=== PATIENT | female | born 1950 | race Hispanic/Latino ===

== ENCOUNTER 2019-05-31 13:45 | Inpatient (IN) | payer OTHER ==
[2019-05-31 15:02] LABS: Urine Bacteria >50 /HPF (<20); Urine RBC <5 /HPF (NONE SEEN)
[2019-05-31 15:03] LABS: Urine Culture Reflex Order REFLEXED
[2019-05-31] MEDS ORDERED: MORPHINE 2 MG/ML SYR ONE (15:22)
[2019-05-31] MEDS ORDERED: ONDANSETRON 4 MG/2 ML VIAL ONE (15:22)
[2019-05-31 15:37] LABS: Absolute Lymphocytes (CBC) 0.5 K/uL (0.7-4.9); Basophils % 0.5 % (0-1.3); Lymphocytes % 1.8 % (15.3-44.8); MPV 10.1 fL (7.6-11.3); RBC Red Blood Cell Count 3.35 M/uL (3.86-4.86)
[2019-05-31 15:40] LABS: Urine Blood 1+ (NEG); Urine Glucose NEGATIVE (NEG); Urine Protein 2+ (NEG); Urine Specific Gravity <1.005 (1.005-1.030)
[2019-05-31 15:55] LABS: Albumin 2.7 g/dL (3.4-5.0); Bilirubin Direct 0.2 mg/dL (0-0.2); Bilirubin Total 0.4 mg/dL (0.2-1.0); Potassium 4.2 mmol/L (3.5-5.1); Protein, Total 7.2 g/dL (6.4-8.2)
[2019-05-31 16:07] LABS: Blood Morphology Comment NOT SEEN (NOT SEEN); Platelet Estimate ADEQ
[2019-05-31] MEDS ORDERED: NA CHLORIDE 0.9% 1,000 ML ONE (16:33)
--- NOTE | 2019-05-31 17:21 | RAD REPORT ---
EXAM DESCRIPTION: - CT-ABD PELVIS W/O CONTRAST - 05/31/2019 4:54 pm CLINICAL HISTORY: Abdominal pain COMPARISON: None TECHNIQUE: Computed axial tomography of the abdomen and pelvis was obtained. IV was not requested. O ral contrast was given. Coronal reconstructions performed. All CT scans are performed using dose optimization technique as appropriate and may include automated exposure control or mA/KV adjustment according to patient size. FINDINGS: The evaluation of solid organs and vessels is limited secondary to the lack of contrast a dministration. Moderate bilateral hydronephrosis. The ureters are dilated bilaterally. A cystocele is present. A gen itourinary calculus is not seen The liver, spleen, pancreas, and right adrenal appear grossly normal. 24 millimeter fatty left adrenal mass may represent a myelolipoma The appendix is normal. Diverticula stem from the colon. Minimal stranding adjacent to the sigmoid. Mild anterior subluxation L4 on L5 A small hiatal hernia. Contrast in the esophagus may indicate GE reflux IMPRESSION: Minimal sigmoid diverticulitis Moderate bilateral hydronephrosis and bilateral hydroureter perhaps related to this could ureteral r eflux. Followup is rec
--- NOTE | 2019-05-31 18:14 | EDPHYS ---
Physician Documentation [facility] Name: Rosanna Persaud Age: 68 yrs Sex: Female : 1950 Arrival Date: 05/31/2019 Time: 13:47 Bed 28 Private MD: Colton Perez ED Physician Rodolfo Viveros HPI: 05/31 14:40 This 68 yrs old Female presents to ER via Ambulatory with complaints of Fever, cp Pelvic Pain. 14:40 The patient presents with abdominal pain in the lower abdomen. Onset: The cp symptoms/episode began/occurred 2-3 days. The symptoms do not radiate. Associated signs and symptoms: Pertinent positives: fever, Pertinent negatives: blood in stools, chest pain, constipation, diarrhea. The symptoms are described as crampy. Historical: - Allergies: 14:02 No Known Allergies; hb - Immunization history:: Adult Immunizations up to date. - Social history:: Smoking status: unknown. - Ebola Screening: : No symptoms or risks identified at this time. ROS: 14:45 Constitutional: Negative for body aches, chills, fever, poor PO intake. cp 14:45 Eyes: Negative for injury, pain, redness, and discharge. cp 14:45 ENT: Negative for drainage from ear(s), ear pain, sore throat, difficulty swallowing, difficulty handling secretions. 14:45 Cardiovascular: Negative for chest pain, palpitations. 14:45 Respiratory: Negative for cough, shortness of breath, wheezing. 14:45 Abdomen/GI: Positive for abdominal pain, Negative for vomiting, diarrhea, constipation, black/tarry stool, rectal bleeding. 14:45 Back: Negative for radiated pain. 14:45 : Negative for urinary symptoms, vaginal bleeding, vaginal discharge. 14:45 Skin: Negative for rash. 14:45 Neuro: Negative for altered mental status, headache, weakness. 14:45 All other systems are negative. Exam: 14:50 Constitutional: The patient appears in no acute distress, alert, awake, cp non-diaphoretic, non-toxic, well developed, well nourished. 14:50 Head/Face: Normocephalic, atraumatic. cp 14:50 Eyes: Periorbital structures: appear normal, Conjunctiva: normal, no exudate, no injection, Sclera: no appreciated abnormality, Lids and lashes: appear normal, bilaterally. 14:50 ENT: External ear(s): are unremarkable, Nose: is normal, Mouth: Lips: moist, Oral mucosa: pink and intact, moist, Posterior pharynx: is normal, airway is patent, no erythema, no exudate. 14:50 Neck: ROM/movement: is normal, is supple, without pain, no range of motions limitations, no nuchal rigidity. 14:50 Chest/axilla: Inspection: normal, Palpation: is normal, no crepitus, no tenderness. 14:50 Cardiovascular: Rate: tachycardic, Rhythm: regular, Edema: is not appreciated, JVD: is not appreciated. 14:50 Respiratory: the patient does not display signs of respiratory distress, Respirations: normal, no use of accessory muscles, no retractions, no splinting, no tachypnea, labored breathing, is not present, Breath sounds: are clear throughout, no decreased breath sounds, no stridor, no wheezing. 14:50 Abdomen/GI: Inspection: abdomen appears normal, Bowel sounds: active, all quadrants, Palpation: soft, in all quadrants, moderate abdominal tenderness, in the suprapubic area and right lower quadrant, rebound tenderness, is not appreciated, voluntary guarding, is not appreciated, involuntary guarding, is not appreciated. 14:50 Back: pain, is absent, ROM is normal. 14:50 : Bladder: prolapsed, observed extending through vagina. 14:50 Skin: no rash present. 14:50 Neuro: Orientation: to person, place \\T\\ time. Mentation: is normal, Motor: moves all fours, strength is normal. Vital Signs: 14:02 BP 157 / 79; Pulse 113; Resp 16; Temp 99.9(TE); Pulse Ox 99% on R/A; Weight 73.03 kg; hb Height 5 ft. 3 in. (160.02 cm); Pain 10/10; 18:00 BP 133 / 69; Pulse 103; Resp 20; Temp 101.1(O); Pulse Ox 100% ; tr5 19:48 BP 131 / 54; Pulse 89; Resp 16; Temp 100.3(O); Pulse Ox 100% on R/A; tr5 14:02 Body Mass Index 28.52 (73.03 kg, 160.02 cm) hb MDM: 14:13 Patient medically screened. cp 15:00 Differential diagnosis: appendicitis, bowel obstruction, cholecystitis, Cholelithiasis, cp diverticulitis, Pyelonephritis, Ureterolithiasis, urinary tract infection. 17:45 Data reviewed: vital signs, nurses notes, lab test result(s), radiologic studies, CT cp scan, I have discussed the patient's presentation/case with the attending Emergency Department Physician; and as a result, I will admit patient, administer antibiotics Flagyl, Rocephin. 17:58 Physician consultation: Luis Daniel Garcia MD was called at 17:50, was contacted at 17:50, regarding consult, patient's condition, and will see patient in inpatient room, tomorrow, would like admission per Dr. Beatrice Chau MD. 05/31 14:34 Order name: Urine Microscopic Only; Complete Time: 15:04 cp 05/31 15:05 Order name: Urine Culture EDMS 05/31 15:10 Order name: Basic Metabolic Panel; Complete Time: 15:59 cp 05/31 15:59 Interpretation: Normal except: NA 133; CO2 20; GLUC 257; BUN 35; CRE 1.82; GFR 28. cp 05/31 15:10 Order name: CBC with Diff; Complete Time: 17:24 cp 05/31 15:59 Interpretation: Normal except: WBC 28.8; RBC 3.35; HGB 10.2; HCT 30.0; YESENIA% 95.1; LYM% cp 1.8; MN% 2.6; NEUT A 27.4. 05/31 15:10 Order name: Creatinine for Radiology; Complete Time: 15:59 cp 05/31 15:10 Order name: Hepatic Function; Complete Time: 15:59 cp 05/31 15:10 Order name: Lipase; Complete Time: 15:59 cp 05/31 15:23 Order name: Urine Dipstick--Ancillary (enter results); Complete Time: 15:46 bd 05/31 16:07 Order name: Manual Differential; Complete Time: 17:24 EDMS 05/31 17:47 Order name: Lactate cp 05/31 17:47 Order name: Procalcitonin cp 05/31 17:50 Order name: Lactate; Complete Time: 23:02 EDMS 05/31 17:50 Order name: Procalcitonin; Complete Time: 23:02 EDMS 05/31 23:02 Interpretation: Abnormal: Procalcitonin 1.80. cp 05/31 14:34 Order name: Urine Dipstick-Ancillary (obtain specimen); Complete Time: 14:44 cp 05/31 15:10 Order name: IV Saline Lock; Complete Time: 15:30 cp 05/31 15:10 Order name: Labs collected and sent; Complete Time: 15:30 cp 05/31 16:44 Order name: CT-ABD ; Complete Time: 17:24 EDMS 05/31 17:35 Order name: Randle; Complete Time: 18:41 cp 05/31 17:36 Order name: Bladder Scanner: pre and post randle placement; Complete Time: 18:57 cp Administered Medications: 15:26 Drug: Zofran 4 mg Route: IVP; Site: left antecubital; tr5 17:37 Follow up: Response: Marked relief of symptoms tr5 15:27 Drug: morphine 2 mg {Note: RASS"0.} Route: IVP; Site: left antecubital; tr5 17:38 Follow up: Response: Pain is decreased tr5 16:38 Drug: NS 0.9% 1000 ml Route: IV; Rate: 1000 ml/hr; Site: left antecubital; tr5 18:13 CANCELLED (Physician Discretion): NS 0.9% 1000 ml IV at 1000 ml/hr Per protocol; 1000 cp mL bolus 18:13 CANCELLED (Physician Discretion): NS 0.9% 1000 ml IV at 100 ml/hr continuous cp 18:55 Drug: NS 0.9% (30 ml/kg) 30 ml/kg Route: IV; Rate: bolus; Site: left antecubital; tr5 18:55 Drug: Tylenol 1000 mg Route: PO; tr5 18:55 Drug: Ibuprofen 800 mg Route: PO; tr5 18:56 Drug: Rocephin 1 grams Route: IV; Rate: calculated rate; Site: left antecubital; tr5 18:58 Drug: metroNIDAZOLE 500 mg Volume: 100 ml; Route: IVPB; Infused Over: 30 mins; Site: tr5 left antecubital; Disposition: 05/31/19 18:13 Hospitalization ordered by Beatrice Chau for Inpatient Admission. Preliminary diagnosis are Hydroureter - bilateral, Other and unspecified hydronephrosis - bilateral, Diverticulitis of intestine, part unspecified, without perforation or abscess without bleeding - sigmoid, Urinary tract infection, site not specified. - Bed requested for Telemetry/MedSurg (Inpatient). - Status is Inpatient Admission. tr5 - Condition is Stable. - Problem is new. - Symptoms have improved. UTI on Admission? Yes Addendum: 06/04/2019 06:08 Co-signature as Attending Physician, Rodolfo Viveros MD. g s Signatures: Dispatcher [employer] EDMA Wendie pendleton bd Souleymane Mayorga PA PA cp Marguerite Lentz, GILDA RN Rodolfo Viveros MD MD Gabe Chen RN RN tr5 Corrections: (The following items were deleted from the chart) 05/31 16:44 15:12 Abdomen Pelvis W Con+CT.RAD.BRZ ordered. EDMA EDMA 16:56 14:30 This 68 yrs old Female presents to ER via Ambulatory with complaints of cp Fever, Pelvic Pain. cp 18:13 17:56 NS 0.9% 1000 ml IV at 1000 ml/hr Per protocol; 1000 mL bolus ordered. cp cp 18:13 17:56 NS 0.9% 1000 ml IV at 100 ml/hr continuous ordered. cp cp 18:15 18:13 Hospitalization Ordered by Beatrice Chau MD for Inpatient Admission. Preliminary cp diagnosis is Hydroureter - bilateral; Other and unspecified hydronephrosis - bilateral. Bed requested for Telemetry/MedSurg (Inpatient). Status is Inpatient Admission. Condition is Stable. Problem is new. Symptoms have improved. UTI on Admission? Yes. cp 18:39 18:15 05/31/2019 18:13 Hospitalization Ordered by Beatrice Chau MD for Inpatient bd Admission. Preliminary diagnosis is Hydroureter - bilateral; Other and unspecified hydronephrosis - bilateral; Diverticulitis of intestine, part unspecified, without perforation or abscess without bleeding - sigmoid; Urinary tract infection, site not specified. Bed requested for Telemetry/MedSurg (Inpatient). Status is Inpatient Admission. Condition is Stable. Problem is new. Symptoms have improved. UTI on Admission? Yes. cp 20:19 18:39 05/31/2019 18:13 Hospitalization Ordered by Beatrice Chau MD for Inpatient tr5 Admission. Preliminary diagnosis is Hydroureter - bilateral; Other and unspecified hydronephrosis - bilateral; Diverticulitis of intestine, part unspecified, without perforation or abscess without bleeding - sigmoid; Urinary tract infection, site not specified. Bed requested for Telemetry/MedSurg (Inpatient). Status is Inpatient Admission. Condition is Stable. Problem is new. Symptoms have improved. UTI on Admission? Yes. bd 23:19 05/30 15:00 Differential diagnosis: appendicitis, bowel obstruction, diverticulitis, cp non-specific abd pain, pancreatitis, Pyelonephritis, Ureterolithiasis, urinary tract infection, sepsis cp
--- NOTE | 2019-05-31 18:14 | ER ---
Nurse's Notes [facility] Name: Rosanna Persaud Age: 68 yrs Sex: Female : 1950 Arrival Date: 05/31/2019 Time: 13:47 Bed 28 Private MD: Colton Perez Diagnosis: Hydroureter-bilateral;Other and unspecified hydronephrosis-bilateral;Diverticulitis of intestine, part unspecified, without perforation or abscess without bleeding-sigmoid;Urinary tract infection, site not specified Presentation: 05/31 14:01 Presenting complaint: Suprapubic pain, chills, and fever x 2-3 days. TMAX 101.7. hb Transition of care: patient was not received from another setting of care. Onset of symptoms was May 29, 2019. Risk Assessment: Do you want to hurt yourself or someone else? Patient reports no desire to harm self or others. Care prior to arrival: Medication(s) given: Tylenol, at 0600 today. 14:01 Method Of Arrival: Ambulatory hb 14:01 Acuity: MALGORZATA 3 hb 15:40 Initial Sepsis Screen: Does the patient meet any 2 criteria? Temp <36.0*C (96.8*F)) or tr5 > 38.3*C (100.9*F). No. Patient's initial sepsis screen is negative. Does the patient have a suspected source of infection? Yes: Dysuria/Frequency/Urgency/UTI. Historical: - Allergies: 14:02 No Known Allergies; hb - Immunization history:: Adult Immunizations up to date. - Social history:: Smoking status: unknown. - Ebola Screening: : No symptoms or risks identified at this time. Screenin:44 Abuse screen: Denies threats or abuse. Nutritional screening: No deficits noted. tr5 Tuberculosis screening: No symptoms or risk factors identified. Fall Risk None identified. Assessment: 14:44 General: Appears in no apparent distress. Behavior is calm, cooperative, appropriate tr5 for age. Pain: Complains of pain in pelvis Pain does not radiate. Pain began 2-3 days ago. Is intermittent. Neuro: Level of Consciousness is awake, alert, obeys commands, Oriented to person, place, time. Cardiovascular: Heart tones present Capillary refill < 3 seconds Pulses are all present. Edema is absent. Respiratory: Airway is patent Respiratory effort is even, unlabored, Respiratory pattern is regular, symmetrical. GI: No signs and/or symptoms were reported involving the gastrointestinal system. : No signs and/or symptoms were reported regarding the genitourinary system. EENT: No signs and/or symptoms were reported regarding the EENT system. Derm: No signs and/or symptoms reported regarding the dermatologic system. Musculoskeletal: No signs and/or symptoms reported regarding the musculoskeletal system. 16:59 Reassessment: Patient appears in no apparent distress at this time. Patient and/or tr5 family updated on plan of care and expected duration. Pain level reassessed. Patient is alert, oriented x 3, equal unlabored respirations, skin warm/dry/pink. Vital Signs: 14:02 BP 157 / 79; Pulse 113; Resp 16; Temp 99.9(TE); Pulse Ox 99% on R/A; Weight 73.03 kg; hb Height 5 ft. 3 in. (160.02 cm); Pain 10/10; 18:00 BP 133 / 69; Pulse 103; Resp 20; Temp 101.1(O); Pulse Ox 100% ; tr5 19:48 BP 131 / 54; Pulse 89; Resp 16; Temp 100.3(O); Pulse Ox 100% on R/A; tr5 14:02 Body Mass Index 28.52 (73.03 kg, 160.02 cm) hb ED Course: 13:47 Patient arrived in ED. ag5 13:48 Colton Perez MD is Private Physician. ag5 14:02 Triage completed. hb 14:02 Arm band placed on. hb 14:03 Souleymane Mayorga PA is PHCP. cp 14:03 Rodolfo Viveros MD is Attending Physician. cp 14:32 Gabe Chen, GILDA is Primary Nurse. tr5 14:44 Placed in gown. Bed in low position. Call light in reach. tr5 15:20 Initial lab(s) drawn, by me, sent to lab. Urine collected: clean catch specimen, clear, jp3 ingrid colored. 15:28 Inserted saline lock: 20 gauge in left antecubital area, using aseptic technique. Blood jp3 collected. Patient maintains SpO2 saturation greater than 95% on room air. 15:29 Side rails up X 1. Side rails up X2. Warm blanket given. Verbal reassurance given. jp3 Pulse ox on. NIBP on. 15:30 Urine Culture Sent. jp3 16:55 CT completed. Patient tolerated procedure well. Patient moved back from CT. mw3 16:56 CT-ABD In Process Unspecified. EDMS 18:12 Beatrice Chau MD is Hospitalizing Provider. cp 18:14 Procalcitonin Sent. tr5 18:14 Lactate Sent. tr5 18:14 Procalcitonin Sent. tr5 18:14 Lactate Sent. tr5 18:40 Willett cath inserted, using sterile technique, 16 Fr., by me, balloon inflated, to ss gravity drainage, Patient tolerated well. 20:14 No provider procedures requiring assistance completed. Patient admitted, IV remains in tr5 place. Administered Medications: 15:26 Drug: Zofran 4 mg Route: IVP; Site: left antecubital; tr5 17:37 Follow up: Response: Marked relief of symptoms tr5 15:27 Drug: morphine 2 mg {Note: RASS"0.} Route: IVP; Site: left antecubital; tr5 17:38 Follow up: Response: Pain is decreased tr5 16:38 Drug: NS 0.9% 1000 ml Route: IV; Rate: 1000 ml/hr; Site: left antecubital; tr5 18:13 CANCELLED (Physician Discretion): NS 0.9% 1000 ml IV at 1000 ml/hr Per protocol; 1000 cp mL bolus 18:13 CANCELLED (Physician Discretion): NS 0.9% 1000 ml IV at 100 ml/hr continuous cp 18:55 Drug: NS 0.9% (30 ml/kg) 30 ml/kg Route: IV; Rate: bolus; Site: left antecubital; tr5 18:55 Drug: Tylenol 1000 mg Route: PO; tr5 18:55 Drug: Ibuprofen 800 mg Route: PO; tr5 18:56 Drug: Rocephin 1 grams Route: IV; Rate: calculated rate; Site: left antecubital; tr5 18:58 Drug: metroNIDAZOLE 500 mg Volume: 100 ml; Route: IVPB; Infused Over: 30 mins; Site: tr5 left antecubital; Output: 18:40 Urine: 700ml (Willett); Total: 700ml. ss Outcome: 18:13 Decision to Hospitalize by Provider. cp 20:14 Admitted to Med/surg accompanied by tech, via stretcher, with chart, Report called to tr5 Jimena VO 20:16 Condition: stable tr5 20:16 Instructed on the need for admit. 20:19 Patient left the ED. tr5 Signatures: Dispatcher [employer] Chelsea An, RN RN Souleymane Pena PA PA cp Baxter, Heather, RN RN Ivet Malcolm 3 Huy Valverde 3 Stanley Gonzalez [facility] Gabe Chen RN RN tr5 Corrections: (The following items were deleted from the chart) 20:18 20:18 Initial Sepsis Screen: Does the patient meet any 2 criteria? Temp <36.0*C tr5 (96.8*F)) or > 38.3*C (100.9*F). No. Patient's initial sepsis screen is negative. Does the patient have a suspected source of infection? Yes: Dysuria/Frequency/Urgency/UTI tr5
[2019-05-31] MEDS ORDERED: ACETAMINOPHEN 500 MG TAB ONE (18:23)
[2019-05-31] MEDS ORDERED: CEFTRIAXONE/SWI 1gm 1 GM/10 ML SYR ONE (18:23)
[2019-05-31] MEDS ORDERED: IBUPROFEN 400 MG TAB ONE (18:23)
[2019-05-31] MEDS ORDERED: METRONIDAZOLE 500mg IVPB 500 MG/100 ML BAG IV ONE (18:23)
[2019-05-31] MEDS ORDERED: NA CHLORIDE 0.9% 3,000 ML ONE (18:24)
[2019-05-31] MEDS ORDERED: CEFEPIME 2 GM VIAL IV ONE (20:24)
[2019-05-31] MEDS ORDERED: ONDANSETRON 4 MG/2 ML VIAL IV PRN (20:24)
[2019-05-31 20:58] VITALS: BMI 29.0
[2019-05-31] MEDS: NA CHLORIDE 0.9% 1,000 ML IV SCH (21:36)
[2019-05-31] MEDS: ENOXAPARIN 30 MG/0.3 ML SQ SCH (21:37)
--- NOTE | 2019-05-31 21:37 | HP ---
Date of Admission: 05/31/2019 Primary Care Physician: Colton Perez MD. Chief Complaint: Abdominal pain, nausea, vomiting, fever. Code Status: Full. History Of Present Illness: Patient is a 68-year-old female with past medical history of hypertensio n, hyperlipidemia, gout, diabetes, [id number], who was in her usual state of health until 2 days prior to admission when the patient had sudden onset of fever and chills. Patient also had so me abdominal pain, distention and had decreased amount of urine. Patient also developed some left fl ank pain. Denies any nausea, vomiting, diarrhea. No travel outside the country. No unusual foods. No ill contacts at home. Patient came into the ER for further evaluation. Her symptoms are constan t, moderate, progressively worsening. No alleviating factors. In the ER, her workup revealed white count of 28,000. Patient was slightly tachycardic, did not appear to be septic. Her kidney function was elevated at 2.5. UA was positive. CT scan showed sigmoid diverticulitis, also showed some hydr onephrosis and bilateral hydroureter. No calculus was seen. No obstruction was present. Patient wa s referred for admission. When seen in the ER, she was awake, alert, oriented x3, in some mild distr ess. Past Medical History: Diabetes mellitus type 2, [id number]; essential hypertension; hyper lipidemia; gout. Past Surgical History: Patient had right foot surgery with hardware present. Allergies: NO KNOWN DRUG ALLERGIES. Medications: As per medication reconciliation list. Social History: Patient denies any tobacco use, alcohol use, or illicit drug use. 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 Lives at home with her daughter. Independent in her activities of daily living. Family History: Diabetes and hypertension run rampant in her family. Review of Systems: Ten-point system reviewed, negative except as per HPI. Physical Examination: Vital Signs: Blood pressure 157/79, pulse 113, respirations 16, temperature 101.7, O2 of 99% on room air. General: Awake, alert, oriented x3, in some mild distress, ill-appearing elderly female. HEENT: Normocephalic, atraumatic. PERRLA. EOMI. Dry mucous membranes. Oropharynx is clear. Telma ent has upper dentures. Conjunctivae anicteric. Neck: Supple. No JVD. Trachea midline. CV: S1, S2. Sinus tachycardia. Peripheral pulses present. Respiratory: Moving air well bilaterally. No wheezing or stridor. No use of accessory muscles. Gastrointestinal: Abdomen is soft. Mild tenderness to palpation. No guarding or rigidity. Positiv e bowel sounds. Extremities: No clubbing, cyanosis. Patient has edema of the right lower extremity, 2+. No edema o n the left. No calf tenderness. Neuro: Cranial nerves 2 through 12 intact grossly. No focal neurological deficit. Speech is normal . Strength is 5/5 in bilateral upper and lower extremities. Skin: No rashes. Normal skin turgor. Psych: Mood is okay. Affect is full. Insight and judgment are good. Laboratory Data: Sodium 133, potassium 4.2, chloride 103, CO2 of 20, BUN 35, creatinine 1.82, glucos e 257. Lactate and procalcitonin are pending. Calcium 8.5. WBC 28.8, H and H 10.2 and 30, platelet s 179, neutrophils 95%. UA negative nitrite, 1+ leukocyte esterase, greater than 50 wbc's, 5 to 10 s quamous epithelial cells, greater than [address] scan shows minimal sigmoid diverticulitis. M oderate bilateral hydronephrosis and bilateral hydroureter, perhaps related to ureteral reflux; small hiatal hernia; 24 mm fatty left adrenal mass may represent myelolipoma. Cystocele is present. Assessment And Plan: A 68-year-old female with: 1.Systemic inflammatory response syndrome. We will start on IV fluids. Patient has received 2 L no rmal saline bolus in the ER. Check procalcitonin and lactate for signs of developing sepsis. Patien t is tachycardic, has a fever greater [place] [address]. Source of infection is genito urinary. Urine culture has been obtained. We will start on broad spectrum IV antibiotics. 2.Pyelonephritis. We will continue with cefepime, renally dosed. No hematuria. 3.Bilateral hydronephrosis and hydroureter. No obstruction seen. May have urethrovesical reflux. Patient will likely need cystoscopy. We will consult Urology, Dr. Garcia. 4.Acute sigmoid diverticulitis. We will start her on Flagyl. Patient is already on cefepime. Telma ent will need outpatient colonoscopy and further workup with GI as an outpatient once the acute infla mmatory period has resolved. 5.Acute kidney injury, likely secondary to hydronephrosis and hydroureter. Patient does not have an y history of chronic kidney disease. We will monitor creatinine level and consult Nephrology. 6.Essential hypertension, stable. We will hold off on blood pressure medications due to possible de veloping sepsis. 7.Diabetes mellitus type 2, [id number]-fyhhqdaet with hyperglycemia. We will start on sliding scal e insulin and monitor blood glucose levels. We will check hemoglobin A1c. 8.Mixed hyperlipidemia. We will continue with statin. 9.Gout. Hold allopurinol due to acute kidney injury. 10.Deep venous thrombosis prophylaxis with SCDs. Start Lovenox, renally dosed. Plan: Admit patient to Med-Surg, place as inpatient. Length of stay is greater than 2 midnights. SUSAN Voice ID: [id number]
[2019-05-31] MEDS ORDERED: CEFEPIME 2 GM VIAL ONE (21:40)
[2019-05-31] MEDS ORDERED: NA CHLORIDE 0.9% 50 ML ONE (21:50)
[2019-05-31] MEDS: INSULIN -REGULAR HUMAN 50 UNIT/0.5 ML ML SQ SCH (22:09)
[2019-06-01] MEDS: METRONIDAZOLE 500mg IVPB 500 MG/100 ML BAG IV SCH ×3 (01:15→16:12)
[2019-06-01] MEDS: NA CHLORIDE 0.9% 1,000 ML IV SCH ×3 (05:37→21:28)
[2019-06-01 05:42] LABS: Absolute Lymphocytes (CBC) 1.7 K/uL (0.7-4.9); Basophils % 0.2 % (0-1.3); Hematocrit 23.8 % (36.0-45.0); Lymphocytes % 6.7 % (15.3-44.8); MPV 10.1 fL (7.6-11.3); RBC Red Blood Cell Count 2.65 M/uL (3.86-4.86)
[2019-06-01 05:57] LABS: Albumin 2.1 g/dL (3.4-5.0); Bilirubin Total 0.3 mg/dL (0.2-1.0); Phosphorus 3.7 mg/dL (2.5-4.9); Potassium 4.3 mmol/L (3.5-5.1); Protein, Total 5.6 g/dL (6.4-8.2)
[2019-06-01 05:59] LABS: Magnesium 1.2 mg/dL (1.8-2.4)
[2019-06-01] MEDS ORDERED: Magnesium Sulfate 2gm IVPB 2 G/50 ML BAG IV ONE (06:06)
[2019-06-01] MEDS: INSULIN -REGULAR HUMAN 50 UNIT/0.5 ML ML SQ SCH ×4 (07:30→21:00)
--- NOTE | 2019-06-01 15:14 | P.HP ---
Date of Service: 06/01/19 Surgery node PC: This 68-year-old female presents emergency room with severe lower abdominal pain for diagnosis and treatment. HPC: Patient had been on well since Saturday. Noticed that she was having lower abdominal pain. Located just above the pubic bone. Describes it as relatively severe. More concerned about the fact that she will was running temperature, had fever and felt like her bones were cracking PSHx: Colonoscopy 22 years ago SOC: No known allergies SYS REVIEW: No cough, wheeze, shortness of breath. No chest pain or palpitations. Has is bladder prolapse. Denies any change in bowel habit recently. O/E awake alert eating her lunch HEENT: Not jaundiced Chest: Chest movement equal bilaterally ABD: Some very mild suprapubic discomfort, but no guarding rebound or right or left lower quadrant finding LOCO: Intact DATA: Elevated white cell count, CT scan shows some very mild stranding of the sigmoid colon. Diverticulitis are noted but not called diverticulitis at this time. IMPRESSION: Abdominal pain PLAN: The patient clearly has this abdominal pain, and symptoms consistent with possible urinary tract infection. She does not appear to have any intestinal issues at this time. She does not require any surgical intervention at this time, apart from a colonoscopy as an outpatient follow-up.
--- NOTE | 2019-06-01 15:44 | CON ---
Chief Complaint: Acute kidney injury. History Of Present Illness: Patient has multiple medical problems including history of hypertension, hyperlipidemia, gout, diabetes mellitus, [id number]-iitslaooh. Patient was taking metformin prior to this admission. Metformin was stopped when patient was found to have elevated BUN and creatinine. Previous baseline is not available at this point. The patient is admitted to the hospital for seps is, urinary tract infection. Patient developed some abdominal distention, decreased urine output. S he was complaining of left flank pain and denies colicky pain. She developed nausea, vomiting and cu rrently started on IV fluids for hydration. She was found to severe leukocytosis. White count was u p to 28,000. She seems tachycardic and appears to be septic. She was admitted to the hospital. Cre atinine level was up to 2.5. Urinalysis was positive for urinary changes consistent with urinary tra ct infection. CT scan showed diverticulitis, also showed some hydronephrosis and bilateral hydrouret er and Urology consultation obtained for obstructive uropathy and hydronephrosis. Review of Systems: Patient denies syncope. Eyes: Denies vision changes. Ears, Nose, Mouth, and Throat: Denies strep throat or earache. Respiratory: Denies PND or orthopnea. Cardiovascular: Denies chest pain, palpitation. GI: Denies nausea, vomiting. Denies melena, hematemesis. : Denies hematuria, had some dysuria and urinary retention, decreased urine flow and frequency. Neurological: Denies seizures. Denies tremors. All other systems reviewed and were all negative. Past Medical History: Diabetes mellitus, non-insulin dependent, essential hypertension, hyperlipidem ia, gout. Past Surgical History: Right foot surgery with hardware. Social History: Denies tobacco, alcohol, or illicit drugs. Family History: Diabetes in the family. Physical Examination: General: The patient is not in acute distress. The patient is awake, alert, oriented x3. Vital Signs: Blood pressure is 140/70, heart rate is 105, temperature is 99.7, respiratory rate 16. SpO2 is 99% on room air. Eyes: Anicteric sclerae. EOMI. Ears, Nose, Mouth, and Throat: Oral mucosa moist. No pallor. Neck: Supple. No bruits. Lungs: Clear to auscultation bilaterally. No wheezing. No rhonchi. Heart: S1 and S2. No pericardial friction rub. Abdomen: Obese, soft, nontender. Generalized tenderness present. Extremities: No clubbing. No cyanosis. 2+ edema in both legs. No cellulitis. No tenderness. Neurological: No tremor. Cranial nerves intact. Psychiatric: Alert and oriented x3. Normal affect. Laboratory Data: Sodium 137, potassium 4.3, chloride 102, CO2 of 20, BUN 37, creatinine 1.82, glucos e 232. Magnesium 1.2, phosphorus 3.7. Urinalysis showed specific gravity less than prote in 2+, squamous epithelial cells from 5 to 10, bacteria less than 60, rbc less than 5. Impression And Plan: 1.Acute on chronic kidney injury. The patient likely has underlying diabetic kidney disease with pr oteinuria. Plan is to rule out monoclonal gammopathy of unknown significance. 2.Acute kidney injury. The patient was found to have hydroureter. Urology consultation is obtained . Pending cultures. 3.Urinary tract infection. Riva count is greater than 100,000 and sensitivity is pending for gram -negative rods. Continue broad spectrum antibiotics, pending blood culture. 4.Hypertension. Blood pressure is controlled. Monitor blood pressure. Adjust medication. 5.Diabetes mellitus. The patient is not a candidate for metformin due to kidney insufficiency and t his can lead to severe lactic acidosis. At this point, patient is noted to have evidence of severe [QAMARKER]in the patient with likely due to acute on chronic kidney insufficiency. 6.Obstructive uropathy, bilateral hydronephrosis. The patient will be evaluated by . ALISSA/BOBBYL Voice ID: [id number] Report ID: [id number]
[2019-06-01] MEDS: ENOXAPARIN 30 MG/0.3 ML SQ SCH (16:12)
--- NOTE | 2019-06-01 16:38 | PN ---
Date of Progress Note: 06/01/2019 Subjective: Patient seen and examined. Chart reviewed and case discussed with RN. Family at the [facility]. Treatment plan explained. All questions answered. Patient states that she feels slightly be tter. Some low-grade fevers overnight. Medications: List reviewed. Physical Examination: Vital Signs: T current is 99, T-max was 101.1 at 6 p.m. last night, heart rate 94, blood pressure 11 0/53, respirations 18, O2 96% on room air. General: Awake, alert, oriented x3, in some mild distress, ill-appearing female, elderly. CV: S1, S2. Sinus tachycardia. Respiratory: Moving air well bilaterally. No wheezing or stridor. No use of accessory muscles. Gastrointestinal: Abdomen is soft, nontender, nondistended. Positive bowel sounds. Extremities: No clubbing or cyanosis. Patient has edema of the right lower extremity. Neurologic: Nonfocal. The patient does have some CVA tenderness. Laboratory Data: Sodium 137, potassium 4.3, chloride 109, CO2 20, BUN 37, creatinine 1.82, glucose 1 40. Hemoglobin A1c is 8%. Calcium 7.5, phosphorus 3.7, magnesium 1.2. Procalcitonin yesterday was 1.8. Lactate was 1.5. WBC 24.8, H and H 8.2 and 23.8, platelets 149, neutrophils 89%, no bands. Ur ine culture growing out gram-negative rods. Assessment And Plan: A 68-year-old female with. 1.Systemic inflammatory response syndrome. The patient had high fevers, tachycardic, white count of over 28,000, improving secondary to multiple sources of infection including diverticulitis and pyelo nephritis. Cultures are pending. Urine culture growing out gram-negative rods. We will continue IV fluids and IV antibiotics. 2.Acute pyelonephritis. Continue with cefepime, renally dosed. Patient does not have any hematuria . Follow up on cultures, currently growing gram-negative rods. 3.Bilateral hydronephrosis and hydroureter. No obstruction. Patient does have cystocele. Urology has been consulted, will likely need cystoscopy. 4.Acute sigmoid diverticulitis. Continue Flagyl. Consult surgery. Patient continues to have some abdominal pain. 5.Acute kidney injury, likely secondary to hydronephrosis and hydroureter. Creatinine is still at 1 .82. Nephrology has been consulted. Workup is underway. 6.Essential hypertension. Patient is currently normotensive to hypotensive. We will hold blood pre ssure medications due to systemic inflammatory response syndrome and possible sepsis. 7.Diabetes mellitus type 2, [id number] with hyperglycemia. We will continue sliding scal e insulin and monitor Accu-Cheks. Patient is not well controlled, has an A1c of 8%. 8.Mixed hyperlipidemia. Continue statin. 9.Gout. Hold allopurinol due to acute kidney injury. 10.Deep venous thrombosis prophylaxis with Lovenox, renally dosed. 11.Hypomagnesemia. We will replace and monitor. 12.Severe protein-calorie malnutrition. Albumin is 2.1. 13.Disposition likely home in the 48 to 72 hours depending on clinical response. /MODL Voice ID: [id number] Report ID: [id number]
--- NOTE | 2019-06-01 18:14 | CON ---
History Of Present Illness: A 68-year-old female, who is 3, para 3, all vaginal deliveries. She has a 34-year-old prolapse, I believe it is grade 4 , which is visible to her. She developed urinary retention and urinary tract infection. She is growing gram-negative rods 100,000 per mL. Her white count was elevated to 24,800, platelet count 149,000. Also, her kidney function shows a creatinine of 1.8. She was admitted for IV antibiotics after Willett catheter was placed to drain her urine. CT scan showed that she had bilateral hydroureters all the way down to the bladder, was most likely caused by the cystocele. There is no stone seen. She also has a possible left adrenal myelolipoma and she has some mild subluxation at L4-L5 with some reflux in the esophagus also per CT scan. Her urine culture is pending and she is currently on cefepime and Flagyl. Past Medical History: Significant for diabetes mellitus, non-insulin requiring ; essential hypertension; hyperlipidemia; gout. Past Surgical History: Right foot surgery _. Allergies: NO KNOWN DRUG ALLERGIES. Home Medications: Metoprolol, allopurinol, glimepiride, amlodipine, metformin, atorvastatin, lisinopril, hydrochlorothiazide. Social History: Denies tobacco use. __lives at home with daughter. Independent. Family History: Diabetes and hypertension. Review of Systems: Ten-point review of systems otherwise negative. Physical Examination: Vital Signs: Temperature 98.9, pulse 81, respiratory rate 16, BP 118/56, 94% saturation. General: Awake, alert, and oriented x3. No distress. HEENT: Normocephalic, atraumatic. CARDIOVASCULAR: S1, S2. RESPIRATORY: Moving air well. ABDOMEN: Soft, nontender. Laboratory Data: CBC 24.8, H and H is 8.2 and 24, platelet count 149. Chemistry shows sodium 137, potassium 4.3, chloride 109, carbon dioxide 20, BUN 37, creatinine 1.8, GFR 28. Urine is mention as growing gram-negative rods. Assessment: A 68-year-old with urosepsis and cystocele causing kinking of the bladder neck and bilateral hydronephrosis with hydroureter. Willett catheter is in place. Bladder is draining well. We will continue IV antibiotics. Wait for final urine culture. If she needs a cystocele repair, should consult Dr. Ortiz. Obviously, no surgery can be done now in the phase of infection. She needs to speak to Dr. Ortiz about that her options versus a pessary. We will just await the urine cultures to base her antibiotics and most likely should go home with a Willett catheter versus a pessary. MARQUIS Voice ID: [id number] Report ID: [id number] RAZIA
[2019-06-01] MEDS: ATORVASTATIN 20 MG TAB PO SCH (20:03)
[2019-06-01] MEDS: ACETAMINOPHEN 500 MG TAB PO PRN (20:04)
[2019-06-01] MEDS ORDERED: CEFEPIME 1 GM/VIAL IV SCH (21:00)
[2019-06-01] MEDS ORDERED: CEFEPIME/SWI 1gm 10 ML IV SCH (22:00)
[2019-06-02] MEDS: METRONIDAZOLE 500mg IVPB 500 MG/100 ML BAG IV SCH ×3 (00:48→17:02)
[2019-06-02] MEDS: NA CHLORIDE 0.9% 1,000 ML IV SCH (02:24)
[2019-06-02 05:37] LABS: Basophils % 0.1 % (0-1.3); Hematocrit 26.5 % (36.0-45.0); MPV 9.9 fL (7.6-11.3); RBC Red Blood Cell Count 2.97 M/uL (3.86-4.86)
[2019-06-02 05:58] LABS: Bilirubin Total 0.4 mg/dL (0.2-1.0); Potassium 3.6 mmol/L (3.5-5.1); Protein, Total 6.1 g/dL (6.4-8.2)
[2019-06-02] MEDS: INSULIN -REGULAR HUMAN 50 UNIT/0.5 ML ML SQ SCH ×4 (07:30→20:52)
[2019-06-02 07:42] LABS: Ferritin 279.2 ng/mL (8-388)
[2019-06-02] MEDS ORDERED: CEFTRIAXONE/SWI 1gm 1 GM/10 ML SYR IV SCH (09:30)
--- NOTE | 2019-06-02 09:42 | P.PN ---
Subjective Date of Service: 06/02/19 Primary Care Provider: Dr. Perez Chief Complaint: Fever Subjective: Other (T-max 100.1. Overall improved. Patient tolerating current diet.) Physical Examination - Vital Signs Temperature: 99.6 F Blood Pressure: 142/68 Pulse: 98 Respirations: 18 Pulse Ox (%): 96 - Physical Exam General: Alert, In no apparent distress, Oriented x3, Cooperative HEENT: Atraumatic Neck: Supple Respiratory: Clear to auscultation bilaterally, Normal air movement Cardiovascular: Normal pulses, Regular rate/rhythm Gastrointestinal: Normal bowel sounds, Soft and benign, Non-distended, No tenderness, No masses, No rebound, No guarding Musculoskeletal: No erythema, No tenderness, No warmth Integumentary: No erythema, No warmth, No cyanosis Neurological: Normal speech, Normal strength at 5/5 x4 extr, Normal tone, Normal affect - Studies Microbiology Data (last 24 hrs): 05/31/19 14:40 Clean Catch Urine [place] Count - Final >100,000 CFU/ML. 05/31/19 14:40 Clean Catch Urine - Final Escherichia Coli Medications List Reviewed: Yes Assessment & Plan Discharge Plan: Home Plan to discharge in: Greater than 2 days Physician Review Additional Text: Impression: Systemic inflammatory response syndrome secondary to acute pyelonephritis and acute sigmoid diverticulitis complicated with acute renal injury with hydronephrosis/hydroureter, urine culture positive for E coli Grade 4 cystocele Anemia with iron deficiency Hypertension Diabetes mellitus type 2 use non insulin-dependent with hyperglycemia Hyperlipidemia Gout Severe protein-calorie malnutrition Hypomagnesia Plan: Systemic inflammatory response syndrome secondary to acute pyelonephritis and acute sigmoid diverticulitis complicated with acute renal injury with hydronephrosis/hydroureter, urine culture positive for E coli: T-max 100.1. Continue to monitor closely. Continue IV fluids and adjust appropriately. Electrolyte protocol in place. Urine culture reviewed. Blood cultures still pending. Adjust IV antibiotic therapy from cefepime to Rocephin. Continue IV Flagyl. Will assess ambulation. Provide incentive spirometer. Continue DVT prophylaxis-Lovenox. Nephrology continues with 24 hr urine collection. Will discuss further with specialty care-surgery/urology/nephrology and consult gynecology to address cystocele. Anticipate discharge in 2-5 days. Grade 4 cystocele: Will consult gynecology for further recommendation. Patient may require pessary or chronic Willett catheter as per Urology. Anemia with iron deficiency: Will provide IV iron. Will monitor lab closely. Hypertension: Blood pressure starting to increase. Will restart metoprolol at a lower dose. Continue to hold Norvasc, lisinopril/hydrochlorothiazide. Will continue to monitor closely and adjust medication accordingly. Diabetes mellitus type 2 non-insulin dependent with hyperglycemia: Continue to hold metformin/glipizide. Monitor Accu-Cheks. Sliding scale in place. Hyperlipidemia: Continue medication. Gout: Continue to hold allopurinol. Severe protein-calorie malnutrition: Encourage oral intake. Will monitor closely. Hypomagnesia: Continue with electrolyte protocol. Time Spent Managing Pts Care (In Minutes): 55
[2019-06-02] MEDS ORDERED: NACHLORIDE 0.45% 1,000 ML IV SCH (10:00)
--- NOTE | 2019-06-02 10:32 | RAD REPORT ---
EXAM DESCRIPTION: US - Renal Ultrasound-Complete - 06/02/2019 10:18 am CLINICAL HISTORY: Acute renal failure COMPARISON: CT study May 31 FINDINGS: The right kidney measures 12.1 x 6.2 x 4.9 cm. The left kidney measures 11.0 x 5.9 x 4.9 cm. Renal cortical thickness and echogenicity are normal. Patient has significant bilateral hydroneph rosis of the pelvis and calices. Hydroureter is also present but outside of the field of view. The de gree of dilatation matches the May [address] CT study. Bladder was mostly contracted limiting detail. IMPRESSION: Patient has significant hydronephrosis of each kidney. Severity matches the May 31 s tudy. Cortical thickness and echogenicity are normal range.
--- NOTE | 2019-06-02 15:06 | P.PN ---
Subjective Date of Service: 06/02/19 Primary Care Provider: Dr. Perez Chief Complaint: Fever Subjective: Improving Pt with Hx of CKD, recently told by PCP that she need nephrology evaluation , Hx iof cystocele , pt presented with fever Cr 1.8, WBC 28 K Today feels better pending GYU evaluation will reduce IVF rate Cr improving Physical Examination - Vital Signs Temperature: 98.6 F Blood Pressure: 166/69 Pulse: 95 Respirations: 18 Pulse Ox (%): 95 - Physical Exam General: In no apparent distress, Oriented x3 HEENT: Atraumatic Neck: Supple, Without JVD or thyroid abnormality Respiratory: Clear to auscultation bilaterally, Normal air movement Cardiovascular: No edema, Regular rate/rhythm, Normal S1 S2, No gallops, No rubs , No murmurs Gastrointestinal: Normal bowel sounds, Soft and benign Musculoskeletal: No swelling - Studies Microbiology Data (last 24 hrs): 05/31/19 14:40 Clean Catch Urine [place] Count - Final >100,000 CFU/ML. 05/31/19 14:40 Clean Catch Urine - Final Escherichia Coli Medications List Reviewed: Yes Assessment And Plan - Plan Delfina on CKD due to obstructive uropathy +/- dehydration still have B/l hydro after randle insertion Cr improving will reduce IVF rate [employer] and urology evaluation Cystocele grade 4 as per [employer] sepsis UTI + diverticulitis cont abx HTN will reduce iVF rate BB adjusted DM as per primary team Anemia F/U SPEP/ UPEP low iron stores IV iron
[2019-06-02] MEDS: NACHLORIDE 0.45% 1,000 ML IV SCH (17:01)
[2019-06-02] MEDS: ENOXAPARIN 30 MG/0.3 ML SQ SCH (17:01)
--- NOTE | 2019-06-02 19:36 | PN ---
Ms. Persaud is doing well. She is making urine, output was 1300 over the last shift, intake 1450, so she is only -150. Of concern is that her white count is still hovering around 26,000. Her urine cul ture did come back E coli pansensitive. However, there was a discussion about possible ESBL, so I carranza ve discussed the case with Dr. Tirado. We will switch her IV antibiotics to meropenem to see how the white count response tomorrow. I am going to go ahead and order a nuclear renal scan with Lasix to rule out obstructive ureters. Her ureters can still obstruct, can be dilated and be obstructed with kinks and things like that, so this will evaluate to see if she needs a stent. I will make her n.p.o . after midnight for the study and take it from there. BRUNO/DEVEN Voice ID: [id number] Report ID: [id number]
[2019-06-02] MEDS: ATORVASTATIN 20 MG TAB PO SCH (20:41)
[2019-06-02] MEDS: Meropenem 1,000 MG in NA CHLORIDE 0.9% 100 ML IV SCH (20:41)
[2019-06-02] MEDS: NYSTATIN PWDR 100000 UNIT/GM TOP SCH (20:42)
[2019-06-02] MEDS ORDERED: Meropenem 1000 MG/VIAL IV SCH (21:00)
[2019-06-02] MEDS ORDERED: METOPROLOL XL 25 MG TAB PO SCH (21:00)
[2019-06-03] MEDS: METRONIDAZOLE 500mg IVPB 500 MG/100 ML BAG IV SCH (00:15)
[2019-06-03] MEDS: NACHLORIDE 0.45% 1,000 ML IV SCH (04:45)
[2019-06-03 05:52] LABS: Absolute Lymphocytes (CBC) 1.3 K/uL (0.7-4.9); Basophils % 0.2 % (0-1.3); Hematocrit 26.5 % (36.0-45.0); Lymphocytes % 7.3 % (15.3-44.8); MPV 9.1 fL (7.6-11.3); RBC Red Blood Cell Count 2.97 M/uL (3.86-4.86)
[2019-06-03 06:11] LABS: Magnesium 1.9 mg/dL (1.8-2.4); Potassium 3.5 mmol/L (3.5-5.1)
[2019-06-03] MEDS ORDERED: FUROSEMIDE 40 MG/4 ML VIAL IV ONE (07:17)
[2019-06-03] MEDS: INSULIN -REGULAR HUMAN 50 UNIT/0.5 ML ML SQ SCH ×4 (07:30→20:27)
--- NOTE | 2019-06-03 08:04 | P.PN ---
Subjective Date of Service: 06/03/19 Primary Care Provider: Dr. Perez Chief Complaint: Fever Subjective: Doing well (Patient feeling better. No fever Overnite.) Physical Examination - Vital Signs Temperature: 98.0 F Blood Pressure: 178/77 Pulse: 94 Respirations: 18 Pulse Ox (%): 93 - Physical Exam General: Alert, In no apparent distress, Oriented x3, Cooperative HEENT: Atraumatic Neck: Supple Respiratory: Clear to auscultation bilaterally, Normal air movement Cardiovascular: Normal pulses, Regular rate/rhythm Gastrointestinal: No tenderness, No masses, No rebound, No guarding Neurological: Normal speech, Normal strength at 5/5 x4 extr, Normal tone, Normal affect - Studies Microbiology Data (last 24 hrs): 05/31/19 14:40 Clean Catch Urine [place] Count - Final >100,000 CFU/ML. 05/31/19 14:40 Clean Catch Urine - Final Escherichia Coli Medications List Reviewed: Yes Assessment & Plan Discharge Plan: Home Plan to discharge in: 48 Hours Physician Review Additional Text: Impression: Systemic inflammatory response syndrome secondary to acute pyelonephritis and acute sigmoid diverticulitis complicated with acute renal injury with hydronephrosis/hydroureter, urine culture positive for E coli Grade 4 cystocele with noted bilateral obstructive uropathy Anemia with iron deficiency Hypertension Diabetes mellitus type 2 use non insulin-dependent with hyperglycemia Hyperlipidemia Gout Severe protein-calorie malnutrition Hypomagnesia Plan: Systemic inflammatory response syndrome secondary to acute pyelonephritis and acute sigmoid diverticulitis complicated with acute renal injury with hydronephrosis/hydroureter, urine culture positive for E coli: No fever over the last 24 hr. Antibiotics adjusted after discussion with urology. Patient now on Merrem for UTI and diverticulitis. Await blood culture results. Will confirm the urine culture results today. White count improved. Urology has ordered renal scan with Lasix to evaluate for obstructive uropathy. Chest shows partial high-grade bilateral UVJ obstruction bilateral likely related to cystocele. Will discuss with urology and gynecology. Patient has Willett catheter in place. Await further recommendation. Grade 4 cystocele with noted bilateral obstructive uropathy: Case discussed with gynecology yesterday. Gynecology recommends to continue Willett catheter. Patient likely a poor candidate for pessary. Renal scan with Lasix shows obstructive uropathy related to cystocele. Will discuss with gynecology further for recommendation. Anemia with iron deficiency: Continue with iron. H&H stable this time. Hypertension: Blood pressure continues to increase. Will increase metoprolol. Will add Norvasc. Continue to hold lisinopril/hydrochlorothiazide. Will adjust medication accordingly. Diabetes mellitus type 2 non-insulin dependent with hyperglycemia: Continue to hold metformin/glipizide. Monitor Accu-Cheks. Sliding scale in place. Hyperlipidemia: Continue medication. Gout: Continue to hold allopurinol. Severe protein-calorie malnutrition: Encourage oral intake. Will monitor closely. Hypomagnesia: Continue with electrolyte protocol. Time Spent Managing Pts Care (In Minutes): 55
[2019-06-03] MEDS: METOPROLOL XL 50 MG TAB PO SCH ×2 (09:05→20:26)
[2019-06-03] MEDS: AMLODIPINE 5 MG TAB PO SCH (09:05)
[2019-06-03] MEDS: NYSTATIN PWDR 100000 UNIT/GM TOP SCH ×2 (09:06→20:27)
[2019-06-03] MEDS: Meropenem 1,000 MG in NA CHLORIDE 0.9% 100 ML IV SCH ×2 (09:06→20:25)
--- NOTE | 2019-06-03 09:34 | RAD REPORT ---
EXAM DESCRIPTION: NM - Kidney Imag W/Flow Func Wop - 06/03/2019 8:36 am CLINICAL HISTORY: Bilateral hydronephrosis COMPARISON: May 31, 2019 cat scan TECHNIQUE: 10 millicuries technetium MAA G3 administered intravenously. 36 milligrams Lasix administ ered 10 minutes into examination. Perfusion, concentration excretion images obtained for 31 minutes . FINDINGS: Perfusion images are suboptimal. However there appears to be symmetric radiotracer activit y to the kidneys Left peak activity 12.9 minutes. Right peak activity 11.8 minutes Left capital T 1/2 equals 21.2 minutes. Right T 1/2 equals 9.5 minutes. Left 20 minutes percentage equals 79.2% Right 20 minutes percentage equals 63.1% Left renal uptake 51% right renal uptake 45% There is delayed radiotracer activity seen within the pyelocaliceal structures bilaterally. Moderate hydronephrosis is present. Dilatation of the ureters is seen to the level of the bladder. After administration of Lasix there there is significant persistence of radiotracer within the pyeloc aliceal structures and ureters. IMPRESSION: The patient has a partial high-grade bilateral UVJ obstruction bilaterally likely the re sult of the cystocele
[2019-06-03] MEDS: Ringers Lactate 1,000 ML IV SCH (13:26)
[2019-06-03] MEDS ORDERED: NA CIT/CITRIC AC 30 ML ORAL UDC ONE (14:20)
[2019-06-03] MEDS ORDERED: NA CHLORIDE 0.9% 1,000 ML ONE (14:23)
[2019-06-03] MEDS ORDERED: GENTAMICIN 100 MG/100 ML BAG 100 ML IV ONE (14:25)
[2019-06-03] MEDS ORDERED: PROPOFOL 200 MG/20 ML VIAL IV ONE (14:49)
[2019-06-03] MEDS ORDERED: LIDOCAINE 1% MPF 5 ML VIAL ONE (14:49)
[2019-06-03] MEDS ORDERED: FENTANYL CITR 100 MCG/2 ML ONE (14:49)
[2019-06-03] MEDS ORDERED: NS 0.9% VIAL 10 ML ONE (15:19)
[2019-06-03] MEDS ORDERED: EPHEDRINE SULF 50 MG/ML VIAL ONE (15:19)
[2019-06-03] MEDS ORDERED: KETOROLAC 30 MG/ML INJ ONE (16:00)
[2019-06-03] MEDS ORDERED: ONDANSETRON 4 MG/2 ML VIAL ONE (16:04)
--- NOTE | 2019-06-03 16:18 | RAD REPORT ---
EXAM DESCRIPTION: RAD - Urography Retrograde - 06/03/2019 4:14 pm CLINICAL HISTORY: STENT COMPARISON: <Comparisons> FINDINGS: Total fluoro time: 3 minutes and 53 seconds
--- NOTE | 2019-06-03 17:24 | PN ---
Date of Progress Note: 06/03/2019 Subjective: The patient was admitted with acute kidney injury, obstructive uropathy. Patient's kidn ey function has been improving, but still had better p.o. intake. Physical Examination: Vital Signs: Blood pressure 195/86, pulse of 114, afebrile. Patient had good urine output of 2400, still have a Willett. Chest: Clear to auscultation. Heart: S1, S2. Regular. Abdomen: Soft, nontender. Extremities: No edema. Laboratory Data: Sodium 142, potassium 3.5, BUN 27, creatinine 1.3, calcium 8.1. Magnesium 1.9. WB C 17.7, H and H 9.5/26.5, platelets 219. Current Medications: The patient on its include: 1.Meropenem 1 g b.i.d. 2.Lovenox. 3.Amlodipine 5 mg daily. 4.Atorvastatin. 5.Metoprolol 50 b.i.d. 6.Tylenol. 7.IV fluid of normal saline 70 per hour. 8.Insulin. Assessment And Plan: 1.Acute kidney injury secondary to obstructive uropathy/toxic acute tubular necrosis, on the recover y phase. Kidney function has been improving significantly. The patient had renal scan, which showed UVG obstruction bilaterally secondary to cystocele. We are going to follow up with Urology for a st ent placement and we will continue to monitor. I can go ahead and decrease IV fluid to 50 per hour. 2.Acidosis secondary to IV fluid. I can go ahead and change IV fluid to LR. 3.Hypokalemia. We will monitor the patient. 4.Acidosis. We will switch IV fluids to LR. 5.Hypertension. Patient just started on amlodipine and metoprolol has been increased. We will foll ow up. 6.Obstructive uropathy, vaginal prolapse. Follow up with and Urology. WILBERT/DEVEN Voice ID: [id number] Report ID: [id number]
[2019-06-03] MEDS: ATORVASTATIN 20 MG TAB PO SCH (20:26)
[2019-06-03 22:13] LABS: Albumin, (SPE) 2.3 g/dL (3.8-4.8); Alpha-1-Globulins 0.6 g/dL (0.2-0.3); Alpha-2-Globulins 0.9 g/dL (0.5-0.9); Gamma Globulins 0.7 g/dL (0.8-1.7); INTERPRETATION REPORT
[2019-06-04 05:24] LABS: Absolute Lymphocytes (CBC) 1.7 K/uL (0.7-4.9); Basophils % 0.2 % (0-1.3); Hematocrit 24.6 % (36.0-45.0); Lymphocytes % 13.1 % (15.3-44.8); MPV 8.7 fL (7.6-11.3); RBC Red Blood Cell Count 2.76 M/uL (3.86-4.86)
[2019-06-04 05:39] LABS: Magnesium 1.6 mg/dL (1.8-2.4); Potassium 3.4 mmol/L (3.5-5.1)
[2019-06-04] MEDS ORDERED: MAGNESIUM SULFATE 1 gm IVPB 1 GM/100 ML BAG IV ONE ×2 (06:05→11:00)
[2019-06-04 06:40] LABS: Blood Morphology Comment NOT SEEN (NOT SEEN); Platelet Estimate ADEQ
[2019-06-04] MEDS: INSULIN -REGULAR HUMAN 50 UNIT/0.5 ML ML SQ SCH ×4 (07:30→21:13)
[2019-06-04] MEDS: Meropenem 1,000 MG in NA CHLORIDE 0.9% 100 ML IV SCH ×2 (08:14→21:13)
[2019-06-04] MEDS: METOPROLOL XL 50 MG TAB PO SCH ×2 (08:15→21:12)
[2019-06-04] MEDS: AMLODIPINE 5 MG TAB PO SCH (08:15)
[2019-06-04] MEDS: NYSTATIN PWDR 100000 UNIT/GM TOP SCH ×2 (08:17→21:15)
[2019-06-04] MEDS: Ringers Lactate 1,000 ML IV SCH (09:00)
[2019-06-04] MEDS ORDERED: Magnesium Sulfate 2gm IVPB 2 G/50 ML BAG IV ONE (10:13)
[2019-06-04] MEDS: ACETAMINOPHEN 500 MG TAB PO PRN ×2 (12:40→16:34)
--- NOTE | 2019-06-04 15:00 | P.PN ---
Subjective Date of Service: 06/04/19 Primary Care Provider: Dr. Perez Chief Complaint: Fever Subjective: Doing well Physical Examination - Vital Signs Temperature: 98.3 F Blood Pressure: 166/70 Pulse: 88 Respirations: 18 Pulse Ox (%): 95 - Physical Exam General: Alert, In no apparent distress, Oriented x3, Cooperative HEENT: Atraumatic Neck: Supple Respiratory: Clear to auscultation bilaterally, Normal air movement Cardiovascular: Normal pulses, Regular rate/rhythm Gastrointestinal: Normal bowel sounds, Soft and benign, Non-distended, No masses , No rebound, No guarding Musculoskeletal: No erythema, No tenderness, No warmth Integumentary: No erythema, No warmth, No cyanosis Neurological: Normal speech, Normal strength at 5/5 x4 extr, Normal tone, Normal affect - Studies Medications List Reviewed: Yes Assessment & Plan Discharge Plan: Other (home vs SNF) Plan to discharge in: 24 Hours Physician Review Additional Text: Impression: Systemic inflammatory response syndrome secondary to acute pyelonephritis and acute sigmoid diverticulitis complicated with acute renal injury with hydronephrosis/hydroureter, urine culture positive for E coli Grade 4 cystocele with noted bilateral obstructive uropathy Anemia with iron deficiency Hypertension Diabetes mellitus type 2 use non insulin-dependent with hyperglycemia Hyperlipidemia Gout Severe protein-calorie malnutrition Hypomagnesia Plan: Systemic inflammatory response syndrome secondary to acute pyelonephritis and acute sigmoid diverticulitis complicated with acute renal injury with hydronephrosis/hydroureter, urine culture positive for E coli: Patient has done well. Stents placed due to obstructive uropathy. Patient still remains on IV antibiotic therapy. Will discuss with urology about plan of care. Patient still needs to see gynecology which will likely be done as an outpatient. Likely home in the next 24 hr pending urology recommendation. Grade 4 cystocele with noted bilateral obstructive uropathy: Urology placed stents. Will discuss with urology about plan of care. Anemia with iron deficiency: Continue with iron. H&H stable this time. Hypertension: Blood pressure has increased. Metoprolol was adjusted. Norvasc added. Will continue to adjust medication. Diabetes mellitus type 2 non-insulin dependent with hyperglycemia: Continue to hold metformin/glipizide. Monitor Accu-Cheks. Sliding scale in place. Hyperlipidemia: Continue medication. Gout: Continue to hold allopurinol. Severe protein-calorie malnutrition: Encourage oral intake. Will monitor closely. Hypomagnesia: Continue with electrolyte protocol. Time Spent Managing Pts Care (In Minutes): 55
--- NOTE | 2019-06-04 16:02 | PN ---
Date of Progress Note: 06/04/2019 Subjective: Patient is status post cystoscopy, feeling better. Tolerated the procedure very well. Complaining of some abdominal pain, otherwise no other symptoms. Physical Examination: Vital Signs: Blood pressure 166/70, pulse of 66 afebrile. Patient had good urine output of 2400. Chest: Clear to auscultation. Heart: S1, S2 regular. Abdomen: Soft, mild tenderness on the left flank. Extremities: No edema. Laboratory Data: WBC down to 12.9, H and H 8.3/24.6, platelets 238. Sodium 144 , potassium 3.4, bicarb 22, BUN 27, creatinine down to 1.3, calcium 7.6, magnesium 1.6. Protein electrophoresis, no monoclonal. Procalcitonin 1.8. Urine culture growing E coli, pansensitive. Current Medications: The patient on include meropenem 1 g b.i.d., Lovenox, amlodipine 5 mg daily, atorvastatin, metoprolol 50 b.i.d., LR 50, Zofran. Assessment And Plan: 1. Acute kidney injury secondary to obstructive uropathy, recovered, trending back, close to baseline, looked to me normal volume. I am going to go ahead and discontinue IV fluid. 2. Hypertension, not controlled. We will increase amlodipine to 10 mg and we will discontinue IV fluid. We will monitor the patient. 3. Hypokalemia, hypomagnesemia. We will supplement. 4. Urinary tract infection, Escherichia coli, complicated urinary tract infection, status post cystoscopy. We will follow up with Urology. Continue current antibiotic. We will consider switch to oral in the next 24 hours. KUMAR Voice ID: [id number] Report ID: [id number] RAZIA
[2019-06-04] MEDS: ENOXAPARIN 30 MG/0.3 ML SQ SCH (16:34)
--- NOTE | 2019-06-04 18:53 | PN ---
The patient responded well to bilateral stents placed yesterday. Previously, a white count was 26,00 0, now is down to 12,900 within 24 hours home. She is feeling good, otherwise. She is getting ready for discharge. Final urine culture was E coli that is pretty much pansensitive. Instructed to go h ome on antibiotics. She will need to keep her stents in as well as her Willett catheter due to retenti on. She is following up with [facility] team. The family said Dr. Ortiz never saw them and so they found their own team in [place] to take care the grade 4 cystocele. BRUNO/DEVEN Voice ID: [id number] Report ID: [id number]
[2019-06-04] MEDS ORDERED: AMLODIPINE 10 MG TAB PO SCH (21:00)
[2019-06-04] MEDS: ATORVASTATIN 20 MG TAB PO SCH (21:12)
[2019-06-04 23:32] VITALS: O2SAT 96
[2019-06-05 05:17] VITALS: TEMP 98.5
[2019-06-05 06:19] LABS: Basophils % 0.4 % (0-1.3); Hematocrit 27.3 % (36.0-45.0); Lymphocytes % 15.2 % (15.3-44.8); MPV 8.6 fL (7.6-11.3); RBC Red Blood Cell Count 3.03 M/uL (3.86-4.86)
[2019-06-05 06:29] LABS: Magnesium 1.8 mg/dL (1.8-2.4); Potassium 3.7 mmol/L (3.5-5.1)
[2019-06-05] MEDS: INSULIN -REGULAR HUMAN 50 UNIT/0.5 ML ML SQ SCH ×2 (07:30→11:48)
[2019-06-05] MEDS ORDERED: MAGNESIUM SULFATE 1 gm IVPB 1 GM/100 ML BAG IV ONE (08:00)
[2019-06-05] MEDS: METOPROLOL XL 50 MG TAB PO SCH (08:22)
[2019-06-05] MEDS: Meropenem 1,000 MG in NA CHLORIDE 0.9% 100 ML IV SCH (08:22)
[2019-06-05 08:25] VITALS: BP 185/79
[2019-06-05] MEDS: NYSTATIN PWDR 100000 UNIT/GM TOP SCH (08:25)
[2019-06-05] MEDS ORDERED: AMLODIPINE 10 MG TAB PO SCH (09:00)
--- NOTE | 2019-06-05 10:41 | P.DS ---
Admission Date: 05/31/19 Discharge Date: 06/05/19 Primary Care Provider: Dr. Perez Disposition: ROUTINE DISCHARGE Discharge Condition: GOOD Reason for Admission: Fever Consultations: Nephrology-Dr. Lion Urology-Dr. Garcia Surgery-Dr. Soler Procedures: Renal US: FINDINGS: The right kidney measures 12.1 x 6.2 x 4.9 cm. The left kidney measures 11.0 x 5.9 x 4.9 cm. Renal cortical thickness and echogenicity are normal. Patient has significant bilateral hydronephrosis of the pelvis and calices. Hydroureter is also present but outside of the field of view. The degree of dilatation matches the May [address] CT study. Bladder was mostly contracted limiting detail. IMPRESSION: Patient has significant hydronephrosis of each kidney. Severity matches the May 31 study. Cortical thickness and echogenicity are normal range. Renal Scan with lasix: FINDINGS: Perfusion images are suboptimal. However there appears to be symmetric radiotracer activity to the kidneys Left peak activity 12.9 minutes. Right peak activity 11.8 minutes Left capital T 1/2 equals 21.2 minutes. Right T 1/2 equals 9.5 minutes. Left 20 minutes percentage equals 79.2% Right 20 minutes percentage equals 63.1% Left renal uptake 51% right renal uptake 45% There is delayed radiotracer activity seen within the pyelocaliceal structures bilaterally. Moderate hydronephrosis is present. Dilatation of the ureters is seen to the level of the bladder. After administration of Lasix there there is significant persistence of radiotracer within the pyelocaliceal structures and ureters. IMPRESSION: The patient has a partial high-grade bilateral UVJ obstruction bilaterally likely the result of the cystocele Procedure: Cystoscopy, bilateral ureteral stent placement, Willett exchange Medical Problem List: Systemic inflammatory response syndrome secondary to acute pyelonephritis and acute sigmoid diverticulitis complicated with acute renal injury with hydronephrosis/hydroureter with Grade 4 cystocele and bilateral obstructive uropathy, urine culture positive for E coli Anemia with iron deficiency Hypertension Diabetes mellitus type 2 use non insulin-dependent with hyperglycemia Hyperlipidemia Gout Severe protein-calorie malnutrition Hypomagnesia Brief History of Present Illness: 68-year-old female with history of hypertension, hyperlipidemia, gout, diabetes mellitus non insulin dependent. Presented with 2 days of fever, chills. She also reported some abdominal pain with distention and poor urinary output. Patient found to have elevated white count, abnormal renal function. CT scan showed sigmoid diverticulitis with bilateral hydronephrosis and hydroureter. Patient was admitted for further evaluation and treatment. Hospital Course: Patient presented with systemic inflammatory response syndrome secondary to acute pyelonephritis and acute sigmoid diverticulitis complicated with acute renal injury with bilateral hydronephrosis/hydroureter with Grade 4 cystocele and bilateral obstructive uropathy. Surgery, Urology, and nephrology were consulted. Patient was started on IV antibiotic therapy. Patient responded to IV fluids and antibiotic therapy. Renal ultrasound showed hydronephrosis. Patient required renal scan with Lasix to evaluate for obstruction. Partial high grade bilateral UVJ obstruction noted. This was likely related to her cystocele. Patient has had chronic grade 4 cystocele. Urine culture was positive for E coli. Blood cultures negative. Urology recommended bilateral ureteral stent placement. This was performed along with Willett exchange. Patient tolerated the procedure well. Patient has improved. Renal function close to baseline. Patient urine output appropriate at discharge. No fever noted. Case discussed at length with urology and nephrology. At discharge patient will continue with Keflex 500 mg 1 pill twice daily for 14 days. Patient will continue with Willett catheter as an outpatient. Patient will need to establish care with gynecology to further address the grade 4 cystocele. Patient will make arrangements to be seen at [facility]. Urology agrees with plan of care. Patient will follow up with urology in 1-2 weeks. Recommend to recheck lab-BMP in 1 week to monitor progress. Patient may follow up with nephrology in 1-2 weeks as well to follow up this hospitalization. Patient also had anemia. Iron deficiency was noted. Hemoglobin remained stable. At discharge she will continue with iron supplementation twice daily. Recommend to recheck lab-CBC in 1-2 weeks to monitor her progress. Patient with diabetes mellitus type 2. Patient had hyperglycemia. Patient previously on metformin and glimepiride. Metformin was discontinued due to acute renal injury. Sugar stable. Hemoglobin A1c 8.0. At discharge she will continue with glimepiride at a higher dose of 2 mg 1 pill twice daily. Continue to hold metformin. Metformin will likely be restarted in the future if renal function improved. Recommend to monitor blood sugar at least twice daily. Recommend to maintain blood sugars less than 140 fasting and less than 200 after meals. Further adjustment can be done by her PCP. Patient with hypertension. Medications were adjusted due to acute renal injury. Lisinopril/hydrochlorothiazide discontinued. Patient continued with Norvasc and metoprolol. Metoprolol was adjusted for better control. At discharge she will continue with medications-Norvasc 10 mg daily and metoprolol XL 100 mg 1 pill twice daily. Recommend to maintain blood pressures less 150/ 80. Further adjustment can be done by her PCP. Lisinopril hydrochlorothiazide may need to be restarted if renal function improved. Recommend to recheck lab- BMP within 1 week. Patient with hyperlipidemia. Patient will continue with her medication-Lipitor 20 mg daily. Patient had some electrolyte abnormalities along with malnutrition. This was replaced. Patient eating appropriately. This can be further monitored as an outpatient. As for her diverticulitis, patient was seen by surgery. No intervention was required. Patient was treated with antibiotic therapy. Will continue with above antibiotic therapy. Will recommend EGD and colonoscopy in 4-6 weeks. Follow up with GI to further monitor. Vital Signs/Physical Exam: Temp Pulse Resp BP Pulse Ox 98.5 F 86 18 185/79 H 96 06/05/19 08:00 06/05/19 08:23 06/05/19 08:00 06/05/19 08:23 06/05/19 08:00 General: Alert, In no apparent distress, Oriented x3, Cooperative HEENT: Atraumatic Neck: Supple Respiratory: Clear to auscultation bilaterally, Normal air movement Cardiovascular: Normal pulses, Regular rate/rhythm Gastrointestinal: Normal bowel sounds, Soft and benign, Non-distended Musculoskeletal: No erythema, No tenderness, No warmth Integumentary: No erythema, No warmth, No cyanosis Neurological: Normal speech, Normal strength at 5/5 x4 extr, Normal tone, Normal affect Laboratory Data at Discharge: WBC 13.2 K/uL (4.3-10.9) H 06/05/19 05:48 Hgb 9.0 g/dL (12.0-15.0) L 06/05/19 05:48 Hct 27.3 % (36.0-45.0) L 06/05/19 05:48 Plt Count 272 K/uL (152-406) 06/05/19 05:48 Sodium 142 mmol/L (136-145) 06/05/19 05:48 Potassium 3.7 mmol/L (3.5-5.1) 06/05/19 05:48 BUN 23 mg/dL (7-18) H 06/05/19 05:48 Creatinine 1.16 mg/dL (0.55-1.3) 06/05/19 05:48 Glucose 175 mg/dL (74-106) H 06/05/19 05:48 Phosphorus 3.7 mg/dL (2.5-4.9) 06/01/19 05:15 Magnesium 1.8 mg/dL (1.8-2.4) 06/05/19 05:48 Total Bilirubin 0.4 mg/dL (0.2-1.0) 06/02/19 05:07 AST 28 U/L (15-37) 06/02/19 05:07 ALT 45 U/L (12-78) 06/02/19 05:07 Alkaline Phosphatase 210 U/L (45-117) H 06/02/19 05:07 Lipase 55 U/L (73-393) L 05/31/19 15:20 Home Medications: Allopurinol [Zyloprim*] 100 mg PO DAILY 05/31/19 Amlodipine Besylate 10 mg PO BEDTIME 05/31/19 Atorvastatin Calcium [Lipitor*] 20 mg PO BEDTIME 05/31/19 Cephalexin [Keflex] 500 mg PO BID #28 cap 06/05/19 Ferrous Sulfate [Iron] 325 mg PO BID #60 tablet 06/05/19 Folic Acid 1 mg PO DAILY #90 tablet 06/05/19 Glimepiride 2 mg PO BID #120 tablet 06/05/19 Metoprolol Succinate [Toprol Xl] 100 mg PO BID #60 tab.er.24h 06/05/19 New Medications: Cephalexin [Keflex] 500 mg PO BID #28 cap Ferrous Sulfate [Iron] 325 mg PO BID #60 tablet Folic Acid 1 mg PO DAILY #90 tablet Glimepiride 2 mg PO BID #120 tablet Metoprolol Succinate [Toprol Xl] 100 mg PO BID #60 tab.er.24h Patient Discharge Instructions: 1. Recommendation is to follow up with her PCP in 1 week to follow up this hospitalization. 2. Patient presented with systemic inflammatory response syndrome secondary to acute pyelonephritis and acute sigmoid diverticulitis complicated with acute renal injury with bilateral hydronephrosis/hydroureter with Grade 4 cystocele and bilateral obstructive uropathy. Surgery, Urology, and nephrology were consulted. Patient was started on IV antibiotic therapy. Patient responded to IV fluids and antibiotic therapy. Renal ultrasound showed hydronephrosis. Patient required renal scan with Lasix to evaluate for obstruction. Partial high grade bilateral UVJ obstruction noted. This was likely related to her cystocele. Patient has had chronic grade 4 cystocele. Urine culture was positive for E coli. Blood cultures negative. Urology recommended bilateral ureteral stent placement. This was performed along with Willett exchange. Patient tolerated the procedure well. Patient has improved. Renal function close to baseline. Patient urine output appropriate at discharge. No fever noted. Case discussed at length with urology and nephrology. At discharge patient will continue with Keflex 500 mg 1 pill twice daily for 14 days. Patient will continue with Willett catheter. Patient will need to establish care with gynecology to further address the grade 4 cystocele. Patient will make arrangements to be seen at [facility]. Urology agrees with plan of care. Patient will follow up with urology in 1-2 weeks. Recommend to recheck lab-BMP in 1 week to monitor progress. Patient may follow up with nephrology in 1-2 weeks as well to follow up this hospitalization. 3. Patient also had anemia. Iron deficiency was noted. Hemoglobin remained stable. At discharge she will continue with iron supplementation twice daily. Recommend to recheck lab-CBC in 1-2 weeks to monitor her progress. 4. Patient with diabetes mellitus type 2. Patient had hyperglycemia. Patient previously on metformin and glimepiride. Metformin was discontinued due to acute renal injury. Sugar stable. Hemoglobin A1c 8.0. At discharge she will continue with glimepiride at a higher dose of 2 mg 1 pill twice daily. Continue to hold metformin. Metformin will likely be restarted in the future if renal function improved. Recommend to monitor blood sugar at least twice daily. Recommend to maintain blood sugars less than 140 fasting and less than 200 after meals. Further adjustment can be done by her PCP. 5. Patient with hypertension. Medications were adjusted due to acute renal injury. Lisinopril/hydrochlorothiazide discontinued. Patient continued with Norvasc and metoprolol. Metoprolol was adjusted for better control. At discharge she will continue with medications- Norvasc 10 mg daily and metoprolol XL 100 mg 1 pill twice daily. Recommend to maintain blood pressures less 150/80. Further adjustment can be done by her PCP. Lisinopril hydrochlorothiazide may need to be restarted once renal function improved. 6. Patient with hyperlipidemia. Patient will continue with her medication-Lipitor 20 mg daily. 7. Patient had some electrolyte abnormalities along with malnutrition. This was replaced. Patient eating appropriately. This can be further monitored as an outpatient. 8. As for her diverticulitis, patient was seen by surgery. No intervention was required. Patient was treated with antibiotic therapy. Will continue with above antibiotic therapy. Will recommend EGD and colonoscopy in 4-6 weeks. Follow up with GI to further monitor. Diet: ADA Activity: Fall precautions Time spent managing pt's care (in minutes): 55
[2019-06-05] MEDS: ACETAMINOPHEN 500 MG TAB PO PRN (10:51)
--- NOTE | 2019-06-05 12:13 | P.PN ---
Subjective Date of Service: 06/05/19 Primary Care Provider: Dr. Perez Chief Complaint: Fever Subjective: Improving Pt with Hx of CKD, recently told by PCP that she need nephrology evaluation , Hx of cystocele , pt presented with fever Cr 1.8, WBC 28 K Today Cr normalized cleared for discharge from nephrology point of view, will be discharged with Willett catheter as per Urology F/U with Nephrology clinic in 2-3 wks Physical Examination - Vital Signs Temperature: 98.5 F Blood Pressure: 185/79 Pulse: 86 Respirations: 18 Pulse Ox (%): 96 - Physical Exam General: In no apparent distress, Oriented x3 HEENT: Atraumatic Neck: Supple, Without JVD or thyroid abnormality Respiratory: Clear to auscultation bilaterally, Normal air movement Cardiovascular: Normal pulses, Regular rate/rhythm, Normal S1 S2, No gallops, No rubs, No murmurs Gastrointestinal: Soft and benign, Non-distended, No ascites, No tenderness, No masses Musculoskeletal: No swelling - Studies Medications List Reviewed: Yes Assessment And Plan - Plan Delfina on CKD due to obstructive uropathy resolved S/P Stent placement Cystocele grade 4 as per [employer] sepsis cont abx Obstructive uropathy S/P stant placement HTN Meds adjusted on Norvasc and metoprolol DM as per primary team Anemia DONNIE F/U SPEP/ UPEP
[2019-06-05] MEDS ORDERED: METOPROLOL XL 100 MG TAB PO SCH (21:00)
== END 2019-06-05 13:55 | disposition home or self-care (01) | DRG 659 ==
LOC: ER 13:45 → ERHOLD 18:22 → 2ND 19:51
PROVIDERS: ADMIT Family Medicine; ATTEND Family Medicine
PROC: 0T788DZ Dilation of Bilateral Ureters with Intraluminal Device, Via Natural or Artificial Opening Endoscopic (ICD-10-PCS; principal; 2019-05-31)
PROC: BT14ZZZ Fluoroscopy of Kidneys, Ureters and Bladder (ICD-10-PCS; 2019-05-31)
DX: N10 Acute pyelonephritis (principal); E43 Unspecified severe protein-calorie malnutrition; R65.10 Systemic inflammatory response syndrome (SIRS) of non-infectious origin without acute organ dysfunction; N13.4 Hydroureter; K57.32 Diverticulitis of large intestine without perforation or abscess without bleeding; Z16.12 Extended spectrum beta lactamase (ESBL) resistance; E87.2 Acidosis; N13.30 Unspecified hydronephrosis; I10 Essential (primary) hypertension; E78.2 Mixed hyperlipidemia; N17.9 Acute kidney failure, unspecified; E11.65 Type 2 diabetes mellitus with hyperglycemia; M10.9 Gout, unspecified; N39.0 Urinary tract infection, site not specified; B96.20 Unspecified Escherichia coli [E. coli] as the cause of diseases classified elsewhere; N81.10 Cystocele, unspecified; E83.42 Hypomagnesemia; E87.6 Hypokalemia; D50.9 Iron deficiency anemia, unspecified; N18.9 Chronic kidney disease, unspecified; Z79.4 Long term (current) use of insulin; Z68.29 Body mass index [BMI] 29.0-29.9, adult
CPT/HCPCS: 36415; 51702; 74176; 74420; 76770; 78707; 80048; 80053; 80076; 81003; 81015; 82550; 82607; 82728; 82947; 82962; 83036; 83540; 83605; 83690; 83735; 84100; 84145; 84165; 84466; 85025; 86335; 87040; 87077; 87086; 87088; 87186; 94760; 96374; 96375; 97116; 97161; 97530; 99285; A9562; J0692; J0696; J1580; J1650; J1940; J2270; J2405; J2704; J3010; J3475; J7030; J7120